=== PATIENT | male | born 1975 | race Caucasian/White ===

== ENCOUNTER 2024-03-28 22:34 | Inpatient (IN) | payer BC ==
[2024-03-28] MEDS ORDERED: PANTOPRAZOLE SODIUM 40 MG VIAL ONE (23:01)
[2024-03-28] MEDS ORDERED: PANTOPRAZOLE SODIUM 80 MG/200 ML BAG IVPB ONE (23:04)
[2024-03-28] MEDS: PANTOPRAZOLE SODIUM 40 MG VIAL IVPUSH ONE (23:24)
[2024-03-28 23:32] LABS: BASO % 0.6 % (0-2.0); EOS % 1.5 % (0-4.5); HEMATOCRIT 31.3 % (35.4-49); HEMOGLOBIN 10.8 GM/dL (11.7-16.9); LYMPH % 13.1 % (8-40); MCH 30.1 pg (25.7-33.7); MCHC 34.5 g/dl (32.0-35.9); MEAN CELL VOLUME 87.1 fl (80-96); MEAN PLT VOLUME 8.4 fl (7.5-11.1); MONO % 4.4 % (3.8-10.2); NEUT % 80.4 % (42.8-82.8); PLATELET COUNT 206 10^3/uL (134-434); RBC 3.59 M/mm3 (4.00-5.60); RDW 13.5 % (11.9-15.9); WHITE BLOOD COUNT 11.2 K/mm3 (4.0-10.0)
[2024-03-28 23:36] LABS: INR 1.3 (0.83-1.09); PROTHROMBIN TIME (PATIENT) 14.6 SEC (9.7-13.0)
[2024-03-28 23:50] LABS: POTASSIUM 5.7 mmol/L (3.5-5.1)
[2024-03-28 23:53] LABS: ALBUMIN 3.1 g/dl (3.4-5.0); BLOOD UREA NITROGEN 50.9 mg/dL (7-18)
[2024-03-28 23:56] LABS: CREATININE 1.3 mg/dL (0.55-1.3)
[2024-03-28 23:58] LABS: BILIRUBIN,TOTAL 0.7 mg/dL (0.2-1); TOT PROT 6.1 g/dl (6.4-8.2)
[2024-03-29] MEDS ORDERED: PANTOPRAZOLE SODIUM 40 MG VIAL ONE (00:30)
[2024-03-29] MEDS ORDERED: PANTOPRAZOLE SODIUM 40 MG/100 ML BAG IVPB ONE (00:30)
[2024-03-29] MEDS: PANTOPRAZOLE SODIUM 80 MG in SODIUM CHLORIDE 100 ML IVPB SCH ×2 (01:00→21:13)
[2024-03-29] MEDS: SODIUM CHLORIDE 1,000 ML IV SCH ×2 (02:34→12:22)
[2024-03-29] MEDS: SODIUM CHLORIDE 1,000 ML IV STA ×3 (04:00→12:22)
[2024-03-29 04:21] LABS: HEMATOCRIT 24.3 % (35.4-49); HEMOGLOBIN 8.4 GM/dL (11.7-16.9); MCH 30.1 pg (25.7-33.7); MCHC 34.7 g/dl (32.0-35.9); MEAN CELL VOLUME 86.6 fl (80-96); MEAN PLT VOLUME 8.9 fl (7.5-11.1); PLATELET COUNT 177 10^3/uL (134-434); RDW 13.3 % (11.9-15.9); WHITE BLOOD COUNT 6.9 K/mm3 (4.0-10.0)
[2024-03-29 04:47] LABS: POTASSIUM 4.9 mmol/L (3.5-5.1)
[2024-03-29 04:48] LABS: CALCIUM 7.4 mg/dL (8.5-10.1)
[2024-03-29 04:49] LABS: BLOOD UREA NITROGEN 53.3 mg/dL (7-18)
[2024-03-29 04:52] LABS: CREATININE 1.1 mg/dL (0.55-1.3)
[2024-03-29] MEDS: CALCIUM GLUCONATE 10% - 1,000 MG/10 ML VIAL IVPB ONE (05:05)
[2024-03-29] MEDS: INSULIN REGULAR HUMAN 100 UNITS/ML *VIAL IVPUSH ONE (05:05)
[2024-03-29] MEDS: INSULIN ASPART SLIDING SCALE (NOVOLOG) 1 VIAL SQ SCH ×2 (06:48→16:26)
[2024-03-29] MEDS ORDERED: CARVEDILOL 3.125 MG TABLET (FP) PO SCH (10:00)
[2024-03-29] MEDS ORDERED: CARVEDILOL 25 MG TABLET (FP) PO SCH (10:00)
[2024-03-29 10:29] LABS: HEMATOCRIT 20.9 % (35.4-49); HEMOGLOBIN 7.2 GM/dL (11.7-16.9); MCH 30.4 pg (25.7-33.7); MCHC 34.6 g/dl (32.0-35.9); MEAN CELL VOLUME 87.7 fl (80-96); MEAN PLT VOLUME 8.9 fl (7.5-11.1); PLATELET COUNT 153 10^3/uL (134-434); RBC 2.38 M/mm3 (4.00-5.60); RDW 13.2 % (11.9-15.9); WHITE BLOOD COUNT 6.1 K/mm3 (4.0-10.0)
[2024-03-29 10:51] LABS: POTASSIUM 4.5 mmol/L (3.5-5.1)
[2024-03-29 10:54] LABS: ALBUMIN 2.6 g/dl (3.4-5.0); CALCIUM 7.7 mg/dL (8.5-10.1)
[2024-03-29 10:55] LABS: BLOOD UREA NITROGEN 49.6 mg/dL (7-18); MAGNESIUM 1.7 mg/dL (1.8-2.4)
[2024-03-29 10:57] LABS: PHOSPHOROUS 2.5 mg/dL (2.5-4.9)
[2024-03-29 10:58] LABS: CREATININE 1.1 mg/dL (0.55-1.3)
[2024-03-29 10:59] LABS: BILIRUBIN,TOTAL 0.4 mg/dL (0.2-1); TOT PROT 4.9 g/dl (6.4-8.2)
[2024-03-29] MEDS: INSULIN (LEVEMIR) 100 UNITS/ML UNITS SQ SCH (11:19)
[2024-03-29] MEDS: EZETIMIBE 10 MG TABLET (FP) PO SCH (11:19)
[2024-03-29] MEDS: MUPIROCIN 2% TOPICAL OINTMENT FOR DECOLONIZATION NS SCH (11:22)
[2024-03-29 13:02] LABS: HEMATOCRIT 23.8 % (35.4-49); HEMOGLOBIN 8.3 GM/dL (11.7-16.9); MCH 30.6 pg (25.7-33.7); MEAN CELL VOLUME 87.2 fl (80-96); PLATELET COUNT 171 10^3/uL (134-434); RBC 2.73 M/mm3 (4.00-5.60); RDW 13.3 % (11.9-15.9); WHITE BLOOD COUNT 6.9 K/mm3 (4.0-10.0)
[2024-03-29 13:04] LABS: BASO % 0.5 % (0-2.0); EOS % 0.8 % (0-4.5); HEMOGLOBIN 8.3 GM/dL (11.7-16.9); LYMPH % 25.2 % (8-40); MCHC 34.4 g/dl (32.0-35.9); MEAN CELL VOLUME 87.1 fl (80-96); MEAN PLT VOLUME 8.4 fl (7.5-11.1); MONO % 5.5 % (3.8-10.2); PLATELET COUNT 181 10^3/uL (134-434); RBC 2.76 M/mm3 (4.00-5.60); RDW 13.3 % (11.9-15.9)
[2024-03-29] MEDS: MAGNESIUM SULF 50% (8.12 MEQ/2 ML-1 GM VIAL) IVPB ONE (14:48)
[2024-03-29] MEDS: NAPH,MB-DB/K PH,MBDB POWDER PACKET PO ONE (14:49)
[2024-03-29] MEDS ORDERED: DEXTROSE 50%-WATER - 25 GM/50 ML VIAL IVPUSH PRN (18:56)
[2024-03-29 19:16] LABS: HEMATOCRIT 18.7 % (35.4-49); MCH 30.2 pg (25.7-33.7); MCHC 34.5 g/dl (32.0-35.9); MEAN CELL VOLUME 87.6 fl (80-96); MEAN PLT VOLUME 8.5 fl (7.5-11.1); PLATELET COUNT 150 10^3/uL (134-434); RBC 2.14 M/mm3 (4.00-5.60); WHITE BLOOD COUNT 4.2 K/mm3 (4.0-10.0)
[2024-03-29 19:19] LABS: ADD RBC MORPHOLOGY YES
[2024-03-29 20:10] LABS: ANISOCYTOSIS 1+; MACROCYTOSIS 0; OVALOCYTE 1+
[2024-03-29] MEDS: CHLORHEXIDINE GLUCONATE 4% CLEANSER FOR DECOLONIZATION TP SCH (21:13)
[2024-03-29] MEDS: ATORVASTATIN CA 80 MG TABLET (FP) PO SCH (21:14)
[2024-03-29] MEDS ORDERED: ATORVASTATIN CA 80 MG TABLET (FP) PO SCH (22:00)
[2024-03-29 23:39] LABS: HEMOGLOBIN 6.5 GM/dL (11.7-16.9)
[2024-03-30 01:42] LABS: BASO % 0.6 % (0-2.0); EOS % 3.1 % (0-4.5); HEMOGLOBIN 8.4 GM/dL (11.7-16.9); LYMPH % 22.9 % (8-40); MCH 30.4 pg (25.7-33.7); MEAN CELL VOLUME 86.7 fl (80-96); MEAN PLT VOLUME 8.4 fl (7.5-11.1); MONO % 5.4 % (3.8-10.2); PLATELET COUNT 144 10^3/uL (134-434); RBC 2.77 M/mm3 (4.00-5.60); WHITE BLOOD COUNT 4.8 K/mm3 (4.0-10.0)
[2024-03-30] MEDS: INSULIN (LEVEMIR) 100 UNITS/ML UNITS SQ SCH (07:18)
[2024-03-30] MEDS: LACTATED RINGERS SOLUTION 1,000 ML/1,000 ML INFUS.BAG IV SCH (07:19)
[2024-03-30 07:29] LABS: BASO % 0.5 % (0-2.0); EOS % 3.7 % (0-4.5); HEMATOCRIT 23.6 % (35.4-49); HEMOGLOBIN 8.5 GM/dL (11.7-16.9); LYMPH % 21.6 % (8-40); MCH 30.7 pg (25.7-33.7); MCHC 35.8 g/dl (32.0-35.9); MEAN CELL VOLUME 85.7 fl (80-96); MEAN PLT VOLUME 8.5 fl (7.5-11.1); MONO % 5.1 % (3.8-10.2); NEUT % 69.1 % (42.8-82.8); PLATELET COUNT 136 10^3/uL (134-434); RBC 2.75 M/mm3 (4.00-5.60)
[2024-03-30 07:32] LABS: POTASSIUM 4.2 mmol/L (3.5-5.1)
[2024-03-30 07:35] LABS: CALCIUM 7.5 mg/dL (8.5-10.1)
[2024-03-30 07:36] LABS: ALBUMIN 2.6 g/dl (3.4-5.0)
[2024-03-30 07:38] LABS: BLOOD UREA NITROGEN 29.7 mg/dL (7-18)
[2024-03-30 07:39] LABS: PHOSPHOROUS 2.6 mg/dL (2.5-4.9)
[2024-03-30 07:40] LABS: BILIRUBIN,TOTAL 1.2 mg/dL (0.2-1); TOT PROT 4.9 g/dl (6.4-8.2)
[2024-03-30] MEDS: EZETIMIBE 10 MG TABLET (FP) PO SCH (11:09)
[2024-03-30] MEDS: INSULIN ASPART SLIDING SCALE (NOVOLOG) 1 VIAL SQ SCH ×2 (11:32→11:39)
[2024-03-30] MEDS: NIFEdipine E.R. 30 MG TABLET PO ONE (12:56)
[2024-03-30] MEDS: NIFEdipine E.R. 30 MG TABLET PO SCH (12:57)
[2024-03-30 17:51] LABS: BASO % 0.5 % (0-2.0); EOS % 3.8 % (0-4.5); HEMATOCRIT 24.2 % (35.4-49); HEMOGLOBIN 8.4 GM/dL (11.7-16.9); LYMPH % 23.6 % (8-40); MCH 29.8 pg (25.7-33.7); MCHC 34.6 g/dl (32.0-35.9); MEAN CELL VOLUME 86.2 fl (80-96); MEAN PLT VOLUME 8.4 fl (7.5-11.1); MONO % 5.2 % (3.8-10.2); NEUT % 66.9 % (42.8-82.8); PLATELET COUNT 145 10^3/uL (134-434); RBC 2.81 M/mm3 (4.00-5.60); RDW 13.3 % (11.9-15.9); WHITE BLOOD COUNT 4.4 K/mm3 (4.0-10.0)
[2024-03-30] MEDS ORDERED: ACETAMINOPHEN 325 MG TABLET (FP) ONE (19:51)
[2024-03-30] MEDS: ACETAMINOPHEN 325 MG TABLET (FP) PO PRN (20:00)
[2024-03-30] MEDS: CARVEDILOL 25 MG TABLET (FP) PO SCH (22:06)
[2024-03-31] MEDS: EZETIMIBE 10 MG TABLET (FP) PO SCH (02:10)
[2024-03-31 06:53] LABS: BASO % 0.4 % (0-2.0); EOS % 4.2 % (0-4.5); HEMATOCRIT 23.2 % (35.4-49); HEMOGLOBIN 8.1 GM/dL (11.7-16.9); LYMPH % 27.8 % (8-40); MCH 30.2 pg (25.7-33.7); MCHC 34.9 g/dl (32.0-35.9); MEAN CELL VOLUME 86.4 fl (80-96); MEAN PLT VOLUME 8.3 fl (7.5-11.1); MONO % 5.7 % (3.8-10.2); NEUT % 61.9 % (42.8-82.8); PLATELET COUNT 133 10^3/uL (134-434); RBC 2.68 M/mm3 (4.00-5.60); RDW 13.3 % (11.9-15.9); WHITE BLOOD COUNT 3.7 K/mm3 (4.0-10.0)
[2024-03-31] MEDS: PANTOPRAZOLE 40 MG TABLET PO SCH (09:51)
[2024-03-31] MEDS: NIFEdipine E.R. 30 MG TABLET PO SCH (09:52)
[2024-03-31] MEDS ORDERED: INSULIN ASPART SLIDING SCALE (NOVOLOG) 1 VIAL SQ ONE (09:53)
[2024-03-31] MEDS ORDERED: INSULIN (LEVEMIR) 100 UNITS/ML UNITS SQ ONE (09:53)
[2024-03-31] MEDS: INSULIN (LEVEMIR) 100 UNITS/ML UNITS SQ SCH (10:02)
[2024-04-01] MEDS ORDERED: INSULIN ASPART SLIDING SCALE (NOVOLOG) 1 VIAL SQ ONE (06:35)
[2024-04-01 07:04] LABS: BASO % 0.5 % (0-2.0); EOS % 3.3 % (0-4.5); HEMATOCRIT 24.4 % (35.4-49); HEMOGLOBIN 8.6 GM/dL (11.7-16.9); MCH 30.9 pg (25.7-33.7); MCHC 35.3 g/dl (32.0-35.9); MEAN CELL VOLUME 87.5 fl (80-96); MEAN PLT VOLUME 8.3 fl (7.5-11.1); MONO % 5.8 % (3.8-10.2); NEUT % 67.4 % (42.8-82.8); PLATELET COUNT 139 10^3/uL (134-434); RBC 2.79 M/mm3 (4.00-5.60); RDW 13.5 % (11.9-15.9)
[2024-04-01 07:15] LABS: POTASSIUM 3.8 mmol/L (3.5-5.1)
[2024-04-01 07:22] LABS: CALCIUM 8.1 mg/dL (8.5-10.1)
[2024-04-01 07:23] LABS: BLOOD UREA NITROGEN 13.7 mg/dL (7-18); MAGNESIUM 1.7 mg/dL (1.8-2.4)
[2024-04-01 07:26] LABS: BILIRUBIN,TOTAL 0.8 mg/dL (0.2-1)
[2024-04-01 07:28] LABS: TOT PROT 5.4 g/dl (6.4-8.2)
[2024-04-01] MEDS: INSULIN (LEVEMIR) 100 UNITS/ML UNITS SQ SCH (08:12)
[2024-04-01 14:01] VITALS: BMI 31.5
[2024-04-02 07:17] LABS: BASO % 0.6 % (0-2.0); EOS % 3.4 % (0-4.5); HEMATOCRIT 24.9 % (35.4-49); HEMOGLOBIN 8.8 GM/dL (11.7-16.9); LYMPH % 21.6 % (8-40); MCH 30.8 pg (25.7-33.7); MCHC 35.4 g/dl (32.0-35.9); MEAN CELL VOLUME 87.2 fl (80-96); MEAN PLT VOLUME 8.4 fl (7.5-11.1); MONO % 5.5 % (3.8-10.2); NEUT % 68.9 % (42.8-82.8); PLATELET COUNT 151 10^3/uL (134-434); RBC 2.85 M/mm3 (4.00-5.60); WHITE BLOOD COUNT 4.1 K/mm3 (4.0-10.0)
[2024-04-02 07:23] LABS: INR 0.91 (0.83-1.09); PROTHROMBIN TIME (PATIENT) 10.3 SEC (9.7-13.0)
[2024-04-02 07:25] LABS: ACTIVATED PTT 26.4 SECONDS (25.2-36.5)
[2024-04-02 07:28] LABS: POTASSIUM 3.8 mmol/L (3.5-5.1)
[2024-04-02 07:36] LABS: BLOOD UREA NITROGEN 14.6 mg/dL (7-18); CALCIUM 8.1 mg/dL (8.5-10.1); MAGNESIUM 1.8 mg/dL (1.8-2.4)
[2024-04-02 07:37] LABS: ALBUMIN 3.1 g/dl (3.4-5.0)
[2024-04-02 07:39] LABS: PHOSPHOROUS 3.4 mg/dL (2.5-4.9)
[2024-04-02 07:41] LABS: CREATININE 1.1 mg/dL (0.55-1.3)
[2024-04-02 07:42] LABS: BILIRUBIN,TOTAL 0.5 mg/dL (0.2-1); TOT PROT 5.9 g/dl (6.4-8.2)
[2024-04-02] MEDS: APIXABAN 5 MG TABLET PO SCH (10:21)
[2024-04-02 15:23] LABS: HEMATOCRIT 26.4 % (35.4-49); HEMOGLOBIN 9.2 GM/dL (11.7-16.9); MCHC 35.1 g/dl (32.0-35.9); MEAN CELL VOLUME 88.4 fl (80-96); MEAN PLT VOLUME 8.9 fl (7.5-11.1); PLATELET COUNT 164 10^3/uL (134-434); RBC 2.98 M/mm3 (4.00-5.60); RDW 13.3 % (11.9-15.9); WHITE BLOOD COUNT 5.6 K/mm3 (4.0-10.0)
[2024-04-02] MEDS ORDERED: INSULIN ASPART SLIDING SCALE (NOVOLOG) 1 VIAL SQ ONE (16:49)
[2024-04-03 06:56] VITALS: RESP 18
[2024-04-03] MEDS ORDERED: INSULIN ASPART SLIDING SCALE (NOVOLOG) 1 VIAL SQ ONE (07:04)
[2024-04-03 08:04] LABS: BASO % 0.5 % (0-2.0); EOS % 2.5 % (0-4.5); HEMOGLOBIN 8.6 GM/dL (11.7-16.9); LYMPH % 19.4 % (8-40); MCH 30.6 pg (25.7-33.7); MCHC 34.6 g/dl (32.0-35.9); MEAN CELL VOLUME 88.7 fl (80-96); MEAN PLT VOLUME 8.8 fl (7.5-11.1); MONO % 6.3 % (3.8-10.2); NEUT % 71.3 % (42.8-82.8); PLATELET COUNT 144 10^3/uL (134-434); RBC 2.82 M/mm3 (4.00-5.60); RDW 13.6 % (11.9-15.9); WHITE BLOOD COUNT 4.9 K/mm3 (4.0-10.0)
[2024-04-03 08:30] LABS: POTASSIUM 4.5 mmol/L (3.5-5.1)
[2024-04-03 08:33] LABS: BLOOD UREA NITROGEN 15.2 mg/dL (7-18); MAGNESIUM 1.9 mg/dL (1.8-2.4)
[2024-04-03 08:35] LABS: PHOSPHOROUS 3.2 mg/dL (2.5-4.9)
[2024-04-03 08:36] LABS: CREATININE 1.1 mg/dL (0.55-1.3)
[2024-04-03 08:37] LABS: BILIRUBIN,TOTAL 0.5 mg/dL (0.2-1); TOT PROT 5.8 g/dl (6.4-8.2)
[2024-04-03] MEDS: LOSARTAN POTASSIUM 50 MG TABLET PO ONE (13:30)
[2024-04-03] MEDS: VALSARTAN 160 MG TABLET PO SCH (13:42)
[2024-04-03 13:59] VITALS: BP 140/92; PULSE 65; TEMP 98
== END 2024-04-03 13:59 | disposition home or self-care (01) | DRG 379 ==
LOC: JER 22:34 → JERBED 03-29 00:28 → J4W 03-29 01:52 → J2W 03-29 07:14 → JICU 03-29 10:15
PROVIDERS: ADMIT Internal Medicine; ATTEND Internal Medicine
PROC: 30233N1 Transfusion of Nonautologous Red Blood Cells into Peripheral Vein, Percutaneous Approach (ICD-10-PCS; 2024-03-29)
PROC: 30233R1 Transfusion of Nonautologous Platelets into Peripheral Vein, Percutaneous Approach (ICD-10-PCS; 2024-03-29)
PROC: 0DJ08ZZ Inspection of Upper Intestinal Tract, Via Natural or Artificial Opening Endoscopic (ICD-10-PCS; principal; 2024-03-29 10:30)
DX: K92.2 Gastrointestinal hemorrhage, unspecified (principal); I48.91 Unspecified atrial fibrillation; I25.10 Atherosclerotic heart disease of native coronary artery without angina pectoris; E11.9 Type 2 diabetes mellitus without complications; Z95.5 Presence of coronary angioplasty implant and graft; I25.2 Old myocardial infarction
CPT/HCPCS: 36415; 36430; 36511; 74174-TC; 80048; 80053; 82272; 82962; 83036; 83735; 84100; 84484; 85025; 85027; 85610; 85730; 86900; 86922; 87102; 87210; 87338; 87635; 93005; 93010; 99285-25; P9037; P9038; P9058

== ENCOUNTER 2024-08-03 00:21 | Inpatient (IN) | payer BC ==
[2024-08-03] MEDS ORDERED: PANTOPRAZOLE SODIUM 40 MG/100 ML BAG IVPB ONE (01:29)
[2024-08-03] MEDS ORDERED: PANTOPRAZOLE SODIUM 40 MG VIAL ONE (01:30)
[2024-08-03] MEDS: PANTOPRAZOLE SODIUM 40 MG VIAL IVPUSH ONE (01:38)
[2024-08-03 01:45] LABS: BASO % 0.4 % (0-2.0); EOS % 1.5 % (0-4.5); HEMATOCRIT 22.7 % (35.4-49); HEMOGLOBIN 7.3 GM/dL (11.7-16.9); LYMPH % 18.3 % (8-40); MCH 23.2 pg (25.7-33.7); MCHC 32.2 g/dl (32.0-35.9); MEAN PLT VOLUME 8.5 fl (7.5-11.1); MONO % 5.5 % (3.8-10.2); NEUT % 74.3 % (42.8-82.8); PLATELET COUNT 244 10^3/uL (134-434); RBC 3.16 M/mm3 (4.00-5.60); RDW 18.1 % (11.9-15.9); WHITE BLOOD COUNT 7.1 K/mm3 (4.0-10.0)
[2024-08-03 01:59] LABS: INR 1.17 (0.83-1.09); PROTHROMBIN TIME (PATIENT) 13.4 SEC (9.7-13.0)
[2024-08-03 02:01] LABS: ACTIVATED PTT 30.7 SECONDS (25.2-36.5)
[2024-08-03 02:16] LABS: CHLORIDE 98 mmol/L (98-107); POTASSIUM 4.5 mmol/L (3.5-5.1); SODIUM 132 mmol/L (136-145)
[2024-08-03 02:19] LABS: ALBUMIN 2.7 g/dl (3.4-5.0); ANION GAP 9 mmol/L (4-13); BLOOD UREA NITROGEN 60.5 mg/dL (7-18); CO2 24 mmol/L (21-32); MAGNESIUM 1.8 mg/dL (1.8-2.4)
[2024-08-03 02:22] LABS: CREATININE 1.5 mg/dL (0.55-1.3); SGOT/AST 10 U/L (15-37); SGPT/ALT 18 U/L (13-61)
[2024-08-03 02:23] LABS: BILIRUBIN,TOTAL 0.2 mg/dL (0.2-1); TOT PROT 5.6 g/dl (6.4-8.2)
[2024-08-03 02:25] LABS: ALK PHOS 82 U/L (45-117)
[2024-08-03 02:29] LABS: GLUCOSE,RANDOM 484 mg/dL (74-106)
[2024-08-03] MEDS: LACTATED RINGERS SOLUTION 1000 ML INFUS.BAG IV ONE (02:49)
[2024-08-03] MEDS: SODIUM CHLORIDE 0.9% 500 ML INFUS.BAG IV ONE (04:04)
[2024-08-03] MEDS ORDERED: INSULIN REGULAR HUMAN 100 UNITS/ML *VIAL ONE ×2 (05:59)
[2024-08-03] MEDS: PANTOPRAZOLE SODIUM 40 MG VIAL IVPUSH SCH (06:25)
[2024-08-03] MEDS: INSULIN REGULAR HUMAN 100 UNITS/ML *VIAL IVPUSH ONE (06:25)
[2024-08-03] MEDS: SODIUM CHLORIDE 1,000 ML IV STA (06:25)
[2024-08-03] MEDS: INSULIN ASPART SLIDING SCALE (NOVOLOG) 1 VIAL SQ SCH ×2 (06:25→08:09)
[2024-08-03 06:32] LABS: BASO % 0.4 % (0-2.0); EOS % 1.2 % (0-4.5); HEMATOCRIT 19.6 % (35.4-49); MCH 23.4 pg (25.7-33.7); MCHC 32.2 g/dl (32.0-35.9); MEAN CELL VOLUME 72.7 fl (80-96); MEAN PLT VOLUME 8.3 fl (7.5-11.1); MONO % 1.3 % (3.8-10.2); NEUT % 71.1 % (42.8-82.8); PLATELET COUNT 208 10^3/uL (134-434); RBC 2.69 M/mm3 (4.00-5.60); RDW 17.6 % (11.9-15.9)
[2024-08-03 06:46] LABS: POTASSIUM 4.3 mmol/L (3.5-5.1)
[2024-08-03 06:49] LABS: ALBUMIN 2.4 g/dl (3.4-5.0); BLOOD UREA NITROGEN 60.8 mg/dL (7-18); CALCIUM 8.5 mg/dL (8.5-10.1)
[2024-08-03 06:52] LABS: CREATININE 1.5 mg/dL (0.55-1.3)
[2024-08-03 06:54] LABS: BILIRUBIN,TOTAL 0.2 mg/dL (0.2-1); TOT PROT 5.2 g/dl (6.4-8.2)
[2024-08-03 07:07] LABS: MAGNESIUM 1.7 mg/dL (1.8-2.4)
[2024-08-03 07:10] LABS: HEMOGLOBIN 6.3 GM/dL (11.7-16.9); PHOSPHOROUS 3.5 mg/dL (2.5-4.9)
[2024-08-03] MEDS ORDERED: INSULIN ASPART SLIDING SCALE (NOVOLOG) 1 VIAL SQ ONE ×2 (08:04→08:07)
[2024-08-03] MEDS ORDERED: INSULIN (LEVEMIR) 100 UNITS/ML UNITS SQ ONE (08:08)
[2024-08-03] MEDS: INSULIN (LEVEMIR) 100 UNITS/ML UNITS SQ SCH (08:09)
[2024-08-03] MEDS ORDERED: INSULIN (LEVEMIR) 100 UNITS/ML UNITS SQ SCH (10:00)
[2024-08-03 10:24] VITALS: BMI 29.9
[2024-08-03] MEDS ORDERED: INSULIN ASPART SLIDING SCALE (NOVOLOG) 1 VIAL SQ SCH (12:00)
[2024-08-03] MEDS ORDERED: DEXTROSE 50%-WATER 25 GM/50 ML DISP.SYRIN IVPUSH PRN (13:00)
[2024-08-03] MEDS: SODIUM CHLORIDE 1,000 ML IV SCH (16:23)
[2024-08-03] MEDS ORDERED: ONDANSETRON 4 MG/2 ML VIAL IVPUSH PRN (17:59)
[2024-08-03] MEDS ORDERED: ACETAMINOPHEN 325 MG TABLET (FP) PO PRN (18:00)
[2024-08-03 19:04] LABS: HEMATOCRIT 25.5 % (35.4-49); HEMOGLOBIN 8.4 GM/dL (11.7-16.9); MCH 24.7 pg (25.7-33.7); MEAN PLT VOLUME 8.2 fl (7.5-11.1); PLATELET COUNT 215 10^3/uL (134-434); RBC 3.39 M/mm3 (4.00-5.60); RDW 18.8 % (11.9-15.9); WHITE BLOOD COUNT 6.9 K/mm3 (4.0-10.0)
[2024-08-04 07:53] LABS: POTASSIUM 4.3 mmol/L (3.5-5.1)
[2024-08-04 08:02] LABS: ALBUMIN 2.5 g/dl (3.4-5.0); CALCIUM 8.1 mg/dL (8.5-10.1)
[2024-08-04 08:03] LABS: BLOOD UREA NITROGEN 35.8 mg/dL (7-18); MAGNESIUM 1.5 mg/dL (1.8-2.4)
[2024-08-04 08:05] LABS: BILIRUBIN,TOTAL 0.6 mg/dL (0.2-1); CREATININE 1.2 mg/dL (0.55-1.3); TOT PROT 5.1 g/dl (6.4-8.2)
[2024-08-04] MEDS: MAGNESIUM 2GM/50ML STERILE WATER IVPB IVPB ONE (08:38)
[2024-08-04 09:46] LABS: HEMATOCRIT 21.9 % (35.4-49); HEMOGLOBIN 7.1 GM/dL (11.7-16.9); MCH 24.8 pg (25.7-33.7); MCHC 32.6 g/dl (32.0-35.9); MEAN CELL VOLUME 76.2 fl (80-96); MEAN PLT VOLUME 7.9 fl (7.5-11.1); PLATELET COUNT 189 10^3/uL (134-434); RBC 2.87 M/mm3 (4.00-5.60); RDW 18.1 % (11.9-15.9); WHITE BLOOD COUNT 4.4 K/mm3 (4.0-10.0)
[2024-08-04 15:21] LABS: HEMATOCRIT 25.1 % (35.4-49); HEMOGLOBIN 8.2 GM/dL (11.7-16.9); MCH 25.4 pg (25.7-33.7); MCHC 32.8 g/dl (32.0-35.9); MEAN CELL VOLUME 77.4 fl (80-96); MEAN PLT VOLUME 7.9 fl (7.5-11.1); PLATELET COUNT 203 10^3/uL (134-434); RBC 3.25 M/mm3 (4.00-5.60); RDW 18.4 % (11.9-15.9); WHITE BLOOD COUNT 4.8 K/mm3 (4.0-10.0)
[2024-08-04 18:35] LABS: HEMATOCRIT 26.7 % (35.4-49); HEMOGLOBIN 8.8 GM/dL (11.7-16.9); MCH 25.6 pg (25.7-33.7); MCHC 33.1 g/dl (32.0-35.9); MEAN CELL VOLUME 77.2 fl (80-96); MEAN PLT VOLUME 8.4 fl (7.5-11.1); PLATELET COUNT 208 10^3/uL (134-434); RBC 3.46 M/mm3 (4.00-5.60); RDW 18.2 % (11.9-15.9); WHITE BLOOD COUNT 5.2 K/mm3 (4.0-10.0)
[2024-08-05 08:30] LABS: BASO % 0.5 % (0-2.0); EOS % 2.2 % (0-4.5); HEMATOCRIT 24.5 % (35.4-49); HEMOGLOBIN 8.3 GM/dL (11.7-16.9); LYMPH % 22.6 % (8-40); MCH 25.7 pg (25.7-33.7); MCHC 33.7 g/dl (32.0-35.9); MEAN PLT VOLUME 8.1 fl (7.5-11.1); MONO % 6.4 % (3.8-10.2); NEUT % 68.3 % (42.8-82.8); PLATELET COUNT 197 10^3/uL (134-434); RBC 3.22 M/mm3 (4.00-5.60); RDW 18.6 % (11.9-15.9)
[2024-08-05 08:52] LABS: POTASSIUM 4.5 mmol/L (3.5-5.1)
[2024-08-05 08:54] LABS: ALBUMIN 2.8 g/dl (3.4-5.0); BLOOD UREA NITROGEN 16.7 mg/dL (7-18); CALCIUM 8.6 mg/dL (8.5-10.1); MAGNESIUM 1.9 mg/dL (1.8-2.4)
[2024-08-05 08:58] LABS: CREATININE 1.2 mg/dL (0.55-1.3)
[2024-08-05 08:59] LABS: BILIRUBIN,TOTAL 0.6 mg/dL (0.2-1); TOT PROT 5.5 g/dl (6.4-8.2)
[2024-08-05] MEDS: SUCRALFATE 1 GM TABLET (FP) PO SCH (14:34)
[2024-08-05 15:32] VITALS: RESP 18
[2024-08-05] MEDS: INSULIN (NOVOLOG) ASPART 100 UNITS/ML 10ML VIAL SQ ONE (22:36)
[2024-08-06] MEDS: INSULIN (NOVOLOG) ASPART 100 UNITS/ML 10ML VIAL SQ ONE (00:35)
[2024-08-06 08:12] LABS: BASO % 0.5 % (0-2.0); HEMATOCRIT 26.2 % (35.4-49); HEMOGLOBIN 8.5 GM/dL (11.7-16.9); LYMPH % 18.3 % (8-40); MCH 25.4 pg (25.7-33.7); MCHC 32.5 g/dl (32.0-35.9); MEAN CELL VOLUME 78.3 fl (80-96); MEAN PLT VOLUME 8.3 fl (7.5-11.1); MONO % 4.8 % (3.8-10.2); NEUT % 74.4 % (42.8-82.8); PLATELET COUNT 193 10^3/uL (134-434); RBC 3.34 M/mm3 (4.00-5.60); RDW 18.4 % (11.9-15.9); WHITE BLOOD COUNT 4.7 K/mm3 (4.0-10.0)
[2024-08-06 08:29] LABS: POTASSIUM 4.3 mmol/L (3.5-5.1)
[2024-08-06 08:38] LABS: CALCIUM 8.4 mg/dL (8.5-10.1)
[2024-08-06 08:39] LABS: ALBUMIN 2.9 g/dl (3.4-5.0); BLOOD UREA NITROGEN 14.5 mg/dL (7-18)
[2024-08-06 08:40] LABS: TOT PROT 5.8 g/dl (6.4-8.2)
[2024-08-06 08:42] LABS: BILIRUBIN,TOTAL 0.4 mg/dL (0.2-1); CREATININE 1.2 mg/dL (0.55-1.3)
[2024-08-06 18:33] VITALS: BP 137/78; PULSE 75; TEMP 97.3
== END 2024-08-06 20:21 | disposition home or self-care (01) | DRG 384 ==
LOC: JER 00:21 → JERBED 05:23 → J4W 09:40
PROVIDERS: ADMIT Internal Medicine
PROC: 30233N1 Transfusion of Nonautologous Red Blood Cells into Peripheral Vein, Percutaneous Approach (ICD-10-PCS; principal; 2024-08-03)
PROC: 0DB68ZX Excision of Stomach, Via Natural or Artificial Opening Endoscopic, Diagnostic (ICD-10-PCS; 2024-08-05)
DX: K27.9 Peptic ulcer, site unspecified, unspecified as acute or chronic, without hemorrhage or perforation (principal); D62 Acute posthemorrhagic anemia; I48.91 Unspecified atrial fibrillation; K92.2 Gastrointestinal hemorrhage, unspecified; I10 Essential (primary) hypertension; E78.5 Hyperlipidemia, unspecified; E11.65 Type 2 diabetes mellitus with hyperglycemia; I44.0 Atrioventricular block, first degree; I25.10 Atherosclerotic heart disease of native coronary artery without angina pectoris; Z86.73 Personal history of transient ischemic attack (TIA), and cerebral infarction without residual deficits; Z98.84 Bariatric surgery status
CPT/HCPCS: 36415; 36430; 71045-TC-FY; 80053; 82272; 82962; 83735; 84100; 84484; 85025; 85027; 85610; 85730; 86850; 86900; 86901; 86922; 88305-TC; 88342-TC; 93005; 93010; 99285-25; P9058